=== PATIENT | female | born 2000 | race Two or more races ===

== ENCOUNTER → 2020-03-04 | Outpatient (CLI) | payer OTHER | END | disposition home or self-care (01) | LOC: LABPV 09:41 | DX: S60.949A Unspecified superficial injury of unspecified finger, initial encounter (principal); X58.XXXA Exposure to other specified factors, initial encounter; Y93.89 Activity, other specified; Y92.89 Other specified places as the place of occurrence of the external cause; Y99.8 Other external cause status | CPT/HCPCS: 80074 ==

== ENCOUNTER 2020-06-22 18:31 | Emergency (ER) | payer MEDICAID, OTHER ==
[~2020-06-22] VITALS: Ht 162.6 cm; Wt 68.2 kg
[2020-06-22 21:27] VITALS: BP 130/98
[2020-06-23] MEDS ORDERED: IBUPROFEN 400 MG TABLET PO ONE (00:15)
== END 2020-06-23 03:00 | disposition home or self-care (01) ==
LOC: EMS 18:31
DX: S43.102A Unspecified dislocation of left acromioclavicular joint, initial encounter (principal); V43.52XA Car driver injured in collision with other type car in traffic accident, initial encounter; Y93.89 Activity, other specified; Y92.89 Other specified places as the place of occurrence of the external cause; Y99.8 Other external cause status
CPT/HCPCS: 99284; 73030-TC; 73060-TC; Z7502; Z7610

== ENCOUNTER 2023-01-29 20:27 | Emergency (ER) | payer MEDICAID, OTHER ==
[~2023-01-29] VITALS: Ht 170.2 cm; Wt 77.3 kg
[2023-01-29 20:39] VITALS: BP 124/70; PULSE 80; RESP 18; TEMP 98.7
[2023-01-29] MEDS ORDERED: MELO-106 PO (20:39)
== END 2023-01-29 23:00 | disposition home or self-care (01) ==
LOC: EMS 20:29
DX: S09.90XA Unspecified injury of head, initial encounter (principal); W22.8XXA Striking against or struck by other objects, initial encounter; Y93.01 Activity, walking, marching and hiking; Y92.481 Parking lot as the place of occurrence of the external cause; Y99.8 Other external cause status
CPT/HCPCS: 99281; 99282; Z7502